=== PATIENT | male | born 1965 | race Caucasian/White ===

== ENCOUNTER 2016-06-15 11:33 | Emergency (ER) | payer OTHER ==
[2016-06-15 12:15] LABS: BASO # 0.1 10_X3_uL (0.0-0.1); BASO % 1.4 % (0.2-1.2); EOS # 0.2 10_X3_uL (0.0-0.5); EOS % 2.5 % (0.8-7.0); GRAN # 4.2 10_X3_uL (1.8-5.4); GRAN % 58.2 % (34.0-67.9); HEMOGLOBIN 14.9 g/dL (13.7-17.5); LYMPH # 1.8 10_X3_uL (1.3-3.6); MEAN CORPUSCULAR HEMOGLOBIN 30.6 pg (27.0-33.0); MEAN CORPUSCULAR HGB CONC 34.7 g/dL (32.0-36.0); MEAN CORPUSCULAR VOLUME 88.3 fL (79-92); MEAN PLATELET VOLUME 9.6 fl (7.5-11.5); MONO # 0.9 10_X3_uL (0.3-0.8); MONO % 12.9 % (5.3-12.2); PLATELET COUNT 351 x10_3/uL (163-337); RED BLOOD COUNT 4.87 x10_6/uL (4.6-6.1); RED CELL DISTRIBUTION WIDTH 13.8 % (11.6-14.4); WHITE BLOOD COUNT 7.2 x10_3/uL (4.2-9.1)
[2016-06-15 12:32] LABS: ALBUMIN 4.4 gm/dL (3.4-5.0); ALKALINE PHOSPHATASE 75 U/L (50-136); ALT/SGPT 20 U/L (7.53-40.17); AST/SGOT 20 U/L (6.66-35.34); BILIRUBIN,TOTAL 0.37 mg/dL (0.0-1.0); BLOOD UREA NITROGEN 15 mg/dL (7-18); CALCIUM 8.8 mg/dL (8.7-10.7); CARBON DIOXIDE 27 mmol/L (21-32); CREATINE KINASE 173 U/L (35-232); CREATININE 0.9 mg/dL (0.6-1.3); GLUCOSE,RANDOM 109 mg/dL (70-99); LIPASE 62 U/L (6.75-60.75); POTASSIUM 3.5 mmol/L (3.5-5.1); SODIUM 141 mmol/L (136-145); TOTAL PROTEIN 7.4 gm/dL (6.4-8.2)
== END 2016-06-15 13:22 | disposition home or self-care (01) ==
LOC: ER 11:33
PROVIDERS: Internal Medicine
DX: R07.9 Chest pain, unspecified (principal); I10 Essential (primary) hypertension; Z88.0 Allergy status to penicillin; Z79.899 Other long term (current) drug therapy; Z79.1 Long term (current) use of non-steroidal anti-inflammatories (NSAID)
CPT/HCPCS: 36415; 71020; 80053; 82550; 82553; 83690; 85025; 93005; 99285-25